=== PATIENT | female | born 1955 | race Caucasian/White ===

== ENCOUNTER 2022-07-29 21:22 | Emergency (ER) | payer MEDICAID ==
[~2022-07-29] VITALS: Ht 162.6 cm; Wt 68.0 kg
[2022-07-30] MEDS ORDERED: ONDANSETRON 4MG ODT PO STA (00:21)
[2022-07-30] MEDS ORDERED: MORPHINE SULFATE 10 MG/ML CPJ IM ONE (00:30)
[2022-07-30 01:08] LABS: BASOPHILS % 0.8 % (0.0-2.0); EOSINOPHILS % 1.2 % (0.0-5.0); HEMATOCRIT. 38.2 % (36.0-48.0); HEMOGLOBIN. 12.5 g/dL (12.0-16.0); LYMPHOCYTES % 22.4 % (20.0-50.0); MEAN CORPUSCULAR HEMOGLOBIN 30.7 pg (28.0-32.0); MEAN CORPUSCULAR VOLUME 94.1 fL (81.0-99.0); MEAN PLATELET VOLUME 8.6 fl (7.4-10.4); MONOCYTES % 8.2 % (2.0-8.0); NEUTROPHILS % 67.4 % (40.0-76.0); PLATELET 258 x1000/uL (130-400); RED BLOOD CELL COUNT 4.06 mill/uL (4.2-5.4); RED CELL DISTRIBUTION WIDTH 13.7 % (11.6-14.6)
[2022-07-30 01:13] LABS: CHLORIDE 110 mEq/L (98-107)
[2022-07-30] MEDS ORDERED: IBUP-2028 MT (03:27)
[2022-07-30 03:50] VITALS: BP 131/68
[2022-07-30] MEDS ORDERED: ONDANSETRON 4MG ODT PO NR (04:00)
[2022-07-30] MEDS ORDERED: MORPHINE SULFATE 10 MG/ML CPJ IM NR (04:00)
== END 2022-07-30 04:10 | disposition home or self-care (01) ==
LOC: ER 21:22
DX: M54.50 Low back pain, unspecified (principal); R55 Syncope and collapse
CPT/HCPCS: 36415; 71045; 74176; 80053; 83690; 85025; 99285; J2270; Q0162

== ENCOUNTER 2022-10-26 16:17 | Inpatient (IN) | payer MEDICAID ==
[~2022-10-26] VITALS: Ht 162.6 cm; Wt 69.9 kg
[~2022-10-26 16:17] MED LIST: IBUP-2028 MT
[2022-10-26 17:36] LABS: HEMATOCRIT. 37.9 % (36.0-48.0); HEMOGLOBIN. 12.5 g/dL (12.0-16.0); MEAN CORPUSCULAR HEMOGLOBIN 30.2 pg (28.0-32.0); MEAN CORPUSCULAR VOLUME 91.6 fL (81.0-99.0); MEAN PLATELET VOLUME 9.6 fl (7.4-10.4); PLATELET 161 x1000/uL (130-400); RED BLOOD CELL COUNT 4.13 mill/uL (4.2-5.4); RED CELL DISTRIBUTION WIDTH 13.5 % (11.6-14.6)
[2022-10-26 18:14] LABS: PLATELET ESTIMATE NORMAL
[2022-10-26 18:34] LABS: CHLORIDE 108 mEq/L (98-107)
[2022-10-26 18:45] LABS: ETHANOL BLOOD < 10 mg/dL
[2022-10-26] MEDS ORDERED: SODIUM CHLORIDE 0.9% 1,000 ML IV ONE (21:00)
[2022-10-26 22:02] LABS: CLARITY URINE CLEAR (CLEAR); COLOR URINE YELLOW (YELLOW); KETONES URINE TRACE (NEGATIVE); LEUKOCYTE ESTERASE URINE 1+ (NEGATIVE); NITRITE URINE NEGATIVE (NEGATIVE); OCCULT BLOOD URINE TRACE (NEGATIVE); PH URINE 5.5 (4.5-8.0); PROTEIN URINE TRACE (NEGATIVE); UROBILINOGEN URINE 0.2 E.U./dL (0.2-1.0)
[2022-10-26 22:24] LABS: *AMPHETAMINES SCREEN URINE NEGATIVE (NEGATIVE); *BARBITURATES SCREEN URINE NEGATIVE (NEGATIVE); *BENZODIAZEPINES SCREEN URINE NEGATIVE (NEGATIVE); *COCAINE SCREEN URINE NEGATIVE (NEGATIVE); CANNABINOID URINE SCREEN NEGATIVE (NEGATIVE); METHADONE URINE SCREEN NEGATIVE (NEGATIVE); OPIATES URINE SCREEN PRESUMTIVE POSITIVE (NEGATIVE); PHENCYCLIDINE URINE SCREEN NEGATIVE (NEGATIVE)
[2022-10-26] MEDS ORDERED: IPRATROPIUM/ALBUTEROL 0.5-3(2.5)MG/3ML NEB NEB PRN (22:30)
[2022-10-26] MEDS ORDERED: ACETAMINOPHEN 325MG TABLET PO PRN (22:30)
[2022-10-26] MEDS ORDERED: ZOLPIDEM TARTRATE 5MG TABLET PO PRN (22:30)
[2022-10-26] MEDS ORDERED: MAGNESIUM/ALUMINUM HYDROXIDE/SIMETHICONE 30ML UDC PO PRN (22:30)
[2022-10-26] MEDS ORDERED: ONDANSETRON HCL 4MG/2ML INJ IV PRN (22:30)
[2022-10-26] MEDS ORDERED: GUAIFENESIN 200MG/10ML SUGAR FREE UDC PO PRN (22:30)
[2022-10-26] MEDS ORDERED: NITROGLYCERIN 0.4MG TABLET SL SL PRN (22:30)
[2022-10-26] MEDS ORDERED: CLONIDINE 0.1MG TABLET PO PRN (22:30)
[2022-10-26] MEDS ORDERED: DOCUSATE SODIUM 100MG CAPSULE PO PRN (22:30)
[2022-10-26] MEDS ORDERED: CEFTRIAXONE 1 G PREMIX 50 ML IV NR (22:33)
[2022-10-26] MEDS ORDERED: LEVOFLOXACIN 500MG PREMIX 100 ML IV SCH (23:00)
[2022-10-26 23:27] LABS: T4 FREE 1.15 ng/dL (0.76-1.46)
[2022-10-26] MEDS: KETOROLAC 15MG/ML VIAL IV PRN (23:32)
[2022-10-26 23:56] LABS: FOLIC ACID (FOLATE) SERUM >20 ng/mL ng/mL (>5.38); VITAMIN B12 SERUM 1223 pg/mL (211-911)
[2022-10-27 02:55] VITALS: BP 136/41
[2022-10-27] MEDS: KETOROLAC 15MG/ML VIAL IV PRN ×2 (04:07→10:41)
[2022-10-27] MEDS: ACETAMINOPHEN 325MG TABLET PO PRN ×2 (05:34→05:38)
[2022-10-27 08:00] VITALS: BP 139/78
[2022-10-27] MEDS: ZINC SULFATE 220 MG ( 50 ) CAPSULE PO SCH ×2 (08:49→08:54)
[2022-10-27] MEDS: ENOXAPARIN 40MG/0.4ML SYR SUBCUT SCH ×2 (08:49→08:55)
[2022-10-27] MEDS: FAMOTIDINE 20MG TABLET PO SCH ×2 (08:49→08:55)
[2022-10-27] MEDS: ASCORBIC ACID 500 MG TABLET PO SCH ×2 (08:49→08:55)
[2022-10-27] MEDS: ASPIRIN 325MG EC TABLET PO SCH ×2 (08:49→08:54)
[2022-10-27 12:00] VITALS: BP 120/55
[2022-10-27 12:09] LABS: BASOPHILS % 0.7 % (0.0-2.0); EOSINOPHILS % 0.6 % (0.0-5.0); HEMATOCRIT. 37.7 % (36.0-48.0); HEMOGLOBIN. 12.5 g/dL (12.0-16.0); LYMPHOCYTES % 18.5 % (20.0-50.0); MEAN CORPUSCULAR HEMOGLOBIN 30.2 pg (28.0-32.0); MEAN CORPUSCULAR VOLUME 90.9 fL (81.0-99.0); MEAN PLATELET VOLUME 9.2 fl (7.4-10.4); MONOCYTES % 8.6 % (2.0-8.0); NEUTROPHILS % 71.6 % (40.0-76.0); PLATELET 181 x1000/uL (130-400); RED BLOOD CELL COUNT 4.15 mill/uL (4.2-5.4); RED CELL DISTRIBUTION WIDTH 13.8 % (11.6-14.6)
[2022-10-27 12:43] LABS: CHLORIDE 109 mEq/L (98-107)
[2022-10-27 12:55] LABS: CREATINE KINASE 86 IU/L (26-192); CREATINE KINASE MB FRACTION < 1.0 ng/mL (0.5-3.6)
[2022-10-27] MEDS ORDERED: CEFTRIAXONE 1,000 MG in DEXTROSE 5% WATER 50 ML IV SCH (20:00)
[2022-10-27] MEDS ORDERED: LEVOFLOXACIN 500MG PREMIX 100 ML IV SCH (21:00)
== END 2022-10-27 14:15 | disposition left against medical advice (07) | DRG 52 ==
LOC: ER 16:17 → MICUSO 21:56 → EDBEDREQ 22:03 → 7EST 10-27 04:08
PROVIDERS: ADMIT Internal Medicine; ATTEND Internal Medicine
DX: G92.8 Other toxic encephalopathy (principal); E78.00 Pure hypercholesterolemia, unspecified; I10 Essential (primary) hypertension; R29.6 Repeated falls; R73.9 Hyperglycemia, unspecified; Z88.8 Allergy status to other drugs, medicaments and biological substances; Z53.29 Procedure and treatment not carried out because of patient's decision for other reasons; Z85.038 Personal history of other malignant neoplasm of large intestine; M25.552 Pain in left hip
CPT/HCPCS: 36415; 71045; 72170; 80053; 80061; 80305; 80307; 80320; 80329; 81003; 82140; 82550; 82553; 82607; 82746; 83036; 83540; 83550; 83605; 83735; 84439; 84443; 84484; 85025; 93005; 99285; J0696; J1650; J1885; J1956; J7030; G0480